=== PATIENT | male | born 1945 | race Caucasian/White ===

== ENCOUNTER 2020-10-12 13:47 | Emergency (ER) | payer OTHER ==
[~2020-10-12] VITALS: Ht 170.2 cm; Wt 72.6 kg
[2020-10-12] MEDS ORDERED: LIPITOR 20 MG T20 M1 PO (14:21)
[2020-10-12] MEDS ORDERED: CITALOPRAM HBR40 MG PO (14:21)
[2020-10-12] MEDS ORDERED: METFORMIN HCL500 M3 PO (14:21)
[2020-10-12] MEDS ORDERED: NORVASC10 MG PO (14:21)
[2020-10-12] MEDS ORDERED: ELIQUIS5 MG PO (14:21)
[2020-10-12] MEDS ORDERED: VIBRAMYCIN 100100 MG PO (15:20)
[2020-10-12] MEDS ORDERED: APAP W/CODEINE1 TA2 PO ×2 (15:20→15:23)
[2020-10-12 15:40] VITALS: BP 133/72
== END 2020-10-12 15:41 | disposition home or self-care (01) ==
LOC: M.ERS 13:47
DX: L03.116 Cellulitis of left lower limb (principal); I10 Essential (primary) hypertension; E11.9 Type 2 diabetes mellitus without complications; Z85.46 Personal history of malignant neoplasm of prostate; Z85.828 Personal history of other malignant neoplasm of skin; Z79.899 Other long term (current) drug therapy

== ENCOUNTER 2020-10-18 16:16 | Inpatient (IN) | payer OTHER ==
[~2020-10-18] VITALS: Ht 170.2 cm; Wt 72.6 kg
[~2020-10-18 16:16] MED LIST: APAP W/CODEINE1 TA2 PO; CITALOPRAM HBR40 MG PO; ELIQUIS5 MG PO; LIPITOR 20 MG T20 M1 PO; METFORMIN HCL500 M3 PO; NORVASC10 MG PO; VIBRAMYCIN 100100 MG PO
[2020-10-18 16:25] VITALS: BP 137/59
[2020-10-18 16:55] LABS: ABSOLUTE BASOPHILS 0.1 thou/uL (0.0-0.2); ABSOLUTE EOSINOPHILS 0.1 thou/uL (0.0-0.7); ABSOLUTE LYMPHOCYTES 1.4 thou/uL (0.8-5.3); ABSOLUTE MONOCYTES 0.6 thou/uL (0.0-1.2); ABSOLUTE NEUTROPHILS 5.9 thou/uL (1.6-8.1); BASOPHILS 0.8 %; EOSINOPHILS 1.2 %; HEMATOCRIT 39.9 % (42.0-52.0); HEMOGLOBIN 13.5 gm/dL (14.0-18.0); LYMPHOCYTES 17.4 %; MCHC 33.9 g/dL (28.0-37.0); MCV 94.3 fL (80.0-100.0); MONOCYTES 7.6 %; MPV 8.2 fl. (7.2-11.1); NUCLEATED RBCS 0 /100WBC; PLATELET COUNT* 328 thou/uL (150-400); RBC 4.23 mil/uL (4.50-6.00); RDW-CV 12.8 % (10.5-14.5); WBC 8.1 thou/uL (4.0-11.0)
[2020-10-18 17:04] LABS: CALCIUM 8.9 mg/dL (8.5-10.1); CREATININE 1.3 mg/dL (0.6-1.3); POTASSIUM 4.1 mmol/L (3.5-5.1)
[2020-10-18 17:08] LABS: APTT 28.2 Seconds (25.0-31.3); PROTIME 11.1 Seconds (9.20-11.50)
[2020-10-18 17:09] LABS: ALBUMIN 3.6 g/dL (3.4-5.0); TOTAL BILIRUBIN 0.3 mg/dL (<0.1-1.0); TOTAL PROTEIN 7.5 g/dL (6.4-8.2)
[2020-10-18 20:27] VITALS: BP 131/60
[2020-10-18 21:00] VITALS: BP 131/65
[2020-10-19 04:34] LABS: HEMATOCRIT 35.8 % (42.0-52.0); HEMOGLOBIN 12.2 gm/dL (14.0-18.0); MCH 32.3 pg (26.0-34.0); MCHC 34.2 g/dL (28.0-37.0); MCV 94.5 fL (80.0-100.0); MPV 7.7 fl. (7.2-11.1); RBC 3.79 mil/uL (4.50-6.00); RDW-CV 12.2 % (10.5-14.5); WBC 7.4 thou/uL (4.0-11.0)
[2020-10-19 04:45] LABS: CALCIUM 9.2 mg/dL (8.5-10.1); CREATININE 1.1 mg/dL (0.6-1.3); POTASSIUM 4.1 mmol/L (3.5-5.1)
--- NOTE | 2020-10-19 07:47 | NUR ---
PATIENT ARRIVED ON FLOOR FROM ER AT ABOUT 2044. PATIENT ADMISSION HISTORY AND ASSESSMENT WAS COMPLETED CHARTED. IV FLUIDS WERE STARTED AT 70 ML/HR. PICTURE OF LEFT GORDON WOUND WAS TAKEN AND PLACED ON CHART. CULTURE OF WOUND WAS SENT TO LAB. PATIENT WAS GIVEN TYLENOL ONCE FOR PAIN WITH GOOD RELIEF. PATIENT VOIDING PER URINAL. WILL CONTINUE TO MONITOR.
[2020-10-19 08:00] VITALS: BP 137/61
--- NOTE | 2020-10-19 14:27 | NUR ---
Pt is A&O. Resides at home with . Independent. 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 Hx of HH. Hx of SNF. Does not remember the name of either. Goal is home at dc, no needs anticipated. ?ivabx at dc.
--- NOTE | 2020-10-19 15:35 | NUR ---
WOUND NURSE: PATIENT SEEN TO ADDRESS LESION ON LEFT TIBIAL ASPECT. PRESENTS A CIRCIFORM LESION MEASURING 0.7 X 1.2 X 0.5 CM. CONTAINS RED, NONGRANULATING TISSUE IN THE WOUDN BED. CONTAINED A SMALL AMOUNT OF YELLOWISH EXUDATE ON THESURFACE OF THE WOUND. PERIWOUND TISSUE WITH LOCALIZED REDNESS, SLIGHT WARMTH AND INDURATION. NONPITTING EDEMA PRESENT. GIRTH MEASUREMENTS FOLLOWS: FOREFOOT: 25 CM, ANKLE 24.5 CM, CALF: 35.5 CM. CLEANSED WITH SOAP AND WATER, RINSED, THEN PATTED DRY. APPLIED AQUACEL AG UNDER BORDERED FOAM DRESSING. APPLIED SINGLE LAYER TUBIGRIP TOES TO KNEE SIZE E. THIS WAS TOLERATED WELL BY THE PATIENT. PATIENT REPORTS NO PAIN NOW, BUT INTERMITTENT PAIN ON PREVIOUS OCCASION. STATES WOUND OCCURRED ON 10/07/20 AFTER ENCOUNTERING DEBRIS FROM A BRUSH HOG NEAR HIS HOME. PATIENT INSTRUCTED ON REPORTABLE S/S AND INTERVENTIONS TO [facility] AND STATES HE UNDERSTANDS. [facility] AND [facility]. STATES HE WILL BE FOLLOWING UP WITH PCP NEXT WEEK THERE. EXPLAINED FOR HIM TO DISCUSS WITH PCP TO OBTAIN REFERRAL FOR [facility]. PATIENT STATES HE WILL.
[2020-10-19 16:02] VITALS: BP 130/76
--- NOTE | 2020-10-19 18:29 | NUR ---
PT RESTING ON BED LEFT LEG VERY RED SWOLLEN. PT STATES IT DOES NOT HURT UNLESS PEOPLE ARE PUSHING ON HIS LEG. VSS AFEBRILE. SALINE LOCK IN LEFT FOREARM WITH IV FLUIDS INFUSING WITHOUT DIFFICULTY. WILL CONTINUE TO MONITOR PLAN OF CARE. DRESSING CHANGED ON LEFT LEG BY WOUND CARE NURSE.
[2020-10-19 20:00] VITALS: BP 137/62
--- NOTE | 2020-10-20 04:31 | NUR ---
PT A&O X 4. VSS ON RA. MEDS GIVEN ORDERED. TYLENOL GIVEN FOR PAIN. DRESSING TO LLE C/D/I. USING URINAL TO VOID. IVF INFUISING. CALL LIGHT WITHIN REACH. WILL CONTINUE TO MONITOR.
[2020-10-20 05:25] LABS: CALCIUM 9.3 mg/dL (8.5-10.1); CREATININE 1.2 mg/dL (0.6-1.3); MAGNESIUM 2.1 mg/dL (1.8-2.4); POTASSIUM 4.3 mmol/L (3.5-5.1)
[2020-10-20 07:55] VITALS: BP 127/67
--- NOTE | 2020-10-20 12:19 | NUR ---
NICKOLAS received message that [facility] wants Pt to transfer once medically stable, per , Pt is medically stable, anticipate dc to home this weekend. NICKOLAS contacted Isabell at [facility], she refused the transfer due to plans for discharge. Plan is for Pt to dc home, Pt declined HH.
[2020-10-20 16:00] VITALS: BP 141/73
--- NOTE | 2020-10-20 20:19 | NUR ---
Pt remained A&O x4 for entire shift. Vital signs stable. Pt pleasant with staff. Pt calling appropriately to go to the bathroom. Pt given meds per AUG. Bed in low position, call light within reach.
[2020-10-20 20:59] VITALS: BP 154/82
--- NOTE | 2020-10-21 04:24 | NUR ---
PT A&OX4, VSS ON ROOM AIR, PT UP WITH SBA, IV FLUIDS INFUSING ORDERED. PRN TYLENOL REQUESTED 1X AND GIVEN ORDERED. PT SLEEPING WELL. WILL CONTINUE TO MONITOR.
[2020-10-21 08:00] VITALS: BP 154/77
[2020-10-21 16:00] VITALS: BP 145/74
--- NOTE | 2020-10-21 20:00 | NUR ---
Pt remained A&O x4 for entire shift. Vital signs stable. Pt pleasant with staff. Pt denies any pain. Pt was hoping to go home today. Pt also noted that he had not had his BP medication while being here. Pt noted he felt like he was having an anxiety attack this evening. Dr. Manzo paged and orders entered. Dr. Manzo was also informed of Pt's home medications not ordered for inpatient stay. Dr. Manzo approved to restart home medications with the exception of metformin. Orders entered. Bed in low position, call light within reach,
[2020-10-21 21:11] VITALS: BP 164/83
[2020-10-22 04:27] LABS: CALCIUM 8.9 mg/dL (8.5-10.1); CREATININE 1.1 mg/dL (0.6-1.3); POTASSIUM 4.2 mmol/L (3.5-5.1)
[2020-10-22 04:47] LABS: HEMATOCRIT 37.9 % (42.0-52.0); HEMOGLOBIN 12.9 gm/dL (14.0-18.0); MCH 32.2 pg (26.0-34.0); MCHC 34.1 g/dL (28.0-37.0); MCV 94.4 fL (80.0-100.0); MPV 8.3 fl. (7.2-11.1); RBC 4.01 mil/uL (4.50-6.00); RDW-CV 12.6 % (10.5-14.5); WBC 8.8 thou/uL (4.0-11.0)
--- NOTE | 2020-10-22 05:06 | NUR ---
PATIENT HAS REMAINED ALERT AND ORIENTED X 4 THROUGHOUT THE SHIFT AND RESTING QUIETLY AT HOURLY ROUNDS AFTER SLEEP AID PROVIDED. DRESSING LLE CLEAN AND DRY. MEDS AND ANTIBIOTICS PER ORDER. VITAL SIGNS STABLE. FALL PRECAUTIONS IN PLACE. CONTINUE TO MONITOR.
[2020-10-22 08:20] VITALS: BP 147/59
[2020-10-22] MEDS ORDERED: BACTRIM DS TAB1 EAC1 PO (13:36)
[2020-10-22 15:23] VITALS: BP 147/59
[2020-10-22 18:01] VITALS: BP 147/59
== END 2020-10-22 15:30 | disposition home or self-care (01) | DRG 603 ==
LOC: M.ERS 16:16 → M.ORTHSURG 17:37 → M.TBA-ER 17:37 → M.ORTHSURG 20:27
PROVIDERS: Internal Medicine; Nurse Practitioner Family; ADMIT Internal Medicine; ATTEND Internal Medicine
DX: L03.116 Cellulitis of left lower limb (principal); S81.832A Puncture wound without foreign body, left lower leg, initial encounter; X58.XXXA Exposure to other specified factors, initial encounter; E11.22 Type 2 diabetes mellitus with diabetic chronic kidney disease; I12.9 Hypertensive chronic kidney disease with stage 1 through stage 4 chronic kidney disease, or unspecified chronic kidney disease; N18.2 Chronic kidney disease, stage 2 (mild); L02.416 Cutaneous abscess of left lower limb; Z20.822 Contact with and (suspected) exposure to COVID-19; Z85.46 Personal history of malignant neoplasm of prostate; Y93.89 Activity, other specified; Y92.89 Other specified places as the place of occurrence of the external cause; Y99.8 Other external cause status; Z85.828 Personal history of other malignant neoplasm of skin; Z79.899 Other long term (current) drug therapy; Z79.01 Long term (current) use of anticoagulants; Z79.84 Long term (current) use of oral hypoglycemic drugs